=== PATIENT | female | born 2000 | race Caucasian/White ===

== ENCOUNTER 2023-04-12 09:55 | Emergency (ER) | payer SELFPAY ==
[2023-04-12 10:01] VITALS: BP 136/83; PULSE 96; RESP 20; TEMP 36.7; O2SAT 99
[2023-04-12 10:08] VITALS: BP 136/83; PULSE 96; RESP 20; TEMP 36.7; O2SAT 99
--- NOTE | 2023-04-12 10:20 | ED.GENADULT ---
HPI - General Adult General Chief complaint: Nausea/Vomiting/Diarrhea Stated complaint: nausea Time Seen by Provider: 04/12/23 10:20 Source: patient, RN notes reviewed and old records reviewed Mode of arrival: ambulatory Limitations: no limitations History of Present Illness HPI narrative: 22 year old female who presents to [facility] care with complaints of nausea for the past 4 days and decreased appetite with 5# weight loss. Patient reports that last Monday she had flu symptoms but didn't actually have documentation of flu. She states that her boyfriend had the flu and then she started with cough, headache, fever and no appetite with some stomach cramping. Patient reports that she has been drinking fluids well and has not had any recent abdominal pain, no vomiting or diarrhea reported. Patient reports no appetite. MD complaint: nausea Onset (ago): day(s) (4) Severity: mild Treatments prior to arrival: none Related Data Home Medications Medication Instructions Recorded Confirmed fluoxetine 20 mg capsule mg 04/12/23 norethindrone 1 mg-ethinyl tablet 04/12/23 estradiol 20 mcg (21)-iron 75 mg (7) tablet (02/25 (28)) Allergies Allergy/AdvReac Type Severity Reaction Status Date / Time No Known Allergies Allergy Verified 04/12/23 09:58 Review of Systems Review of Systems: CONSTITUTIONAL: Denies fever, chills, or sweats. ENT: Denies rhinorrhea, congestion, sore throat, or otalgia. CARDIOVASCULAR: Denies chest pain, palpitations, or edema. RESPIRATORY: Reports some lingering cough denies any dyspnea. GASTROINTESTINAL: Reports no abdominal pain,positive for nausea, no vomiting, diarrhea. GENITOURINARY: Denies dysuria or hematuria. SKIN: Denies rash or itching. MUSCULOSKELETAL: Denies back pain, joint pain, or myalgia. NEUROLOGIC: Denies headache, numbness, or weakness. All systems reviewed & are unremarkable except as noted in HPI and below PMFSH Past Medical History Medical History (Updated 04/13/23 @ 09:33 by Kandace Valentin NP) Anxiety and depression Ear infection Strep throat Social History Social History (Updated 04/13/23 @ 09:33 by Kandace Valentin NP) Smoking status: Never smoker Alcohol intake: never Substance use type: does not use Living arrangements: with family Gender identity (if verbalized by the patient): Female Comments At time of signature, agree with nursing past medical, surgical, social and family history. There is no relevant family history pertinent to the presenting complaint Exam Narrative: GENERAL: Well-appearing, well-nourished, and in no acute distress. HEAD: Normocephalic, atraumatic. EYES: PERRLA, conjunctivae clear, and EOMI. ENT: Nares clear. Mucous membranes moist. Oropharynx without edema, erythema, or lesions. Tonsils not enlarged and without exudate. NECK: Supple. No lymphadenopathy CHEST: Speaks in full sentences. No respiratory distress.dry cough noted SAO2 99% on room air HEART: Regular rate and rhythm. ABDOMEN: Soft, flat, nondistended. No guarding, rebound tenderness, or rigid. No pulsatilla masses. Bowel sounds present in all four quadrants. No organomegaly. Negative York?s sign. No periumbilical tenderness. No Supra public tenderness or distension. Good femoral pulses bilaterally. No hernia noted. No scars or surface trauma.no McBurney point tenderness. SKIN: Warm, dry, no rash. NEURO:? Alert and oriented x3. PSYCH: Normal mood and affect Course Course Emergency Course: Patient is aware of diagnosis, understands and agrees to treatment plan.? Anticipatory guidance given.? Patient agrees to follow-up as directed and is aware of reasons to seek care at the emergency department. Portions of this record may have been created with voice recognition software Level of Care: Express Care Visit Vital Signs Vital signs: Vital Signs Temperature 36.7 C 04/12/23 10:01 Pulse Rate 96 04/12/23 10:01 Respira
== END 2023-04-12 10:42 | disposition home or self-care (01) ==
PROVIDERS: Emergency Provider Registered Nurse; PCP Nurse Practitioner Family
DX: R11.0 Nausea (principal)
CPT/HCPCS: 99213; G0463

== ENCOUNTER 2024-12-26 17:58 | Emergency (ER) | payer OTHER, SELFPAY ==
[2024-12-26 18:04] VITALS: BP 142/89; PULSE 78; RESP 16; TEMP 37.2; O2SAT 100
--- NOTE | 2024-12-26 18:10 | ED_ITS ---
HPI - General Adult General Chief complaint: GI Bleed Stated complaint: Blood in bowl movement Time Seen by Provider: 12/26/24 18:14 Source: patient, RN notes reviewed and old records reviewed Mode of arrival: ambulatory Limitations: no limitations History of Present Illness HPI narrative: 24 year old female presents to [facility] care with complaints of having a hard stool about an hour ago and noted some bright red blood from rectum after stool and also a small blood clot. Patient reports that she has no discomfort to rectal area at this time. Patient reports that she has had history of hemorrhoids in the past. Patient also reports that she is 20 days lateon her menses complaint: blood after having hard stool Onset (ago): hour(s) (1 hour ago) Location: buttocks (rectal blood noted after having hard stool) Treatments prior to arrival: none Related Data Home Medications ?Medication ?Instructions ?Recorded ?Confirmed ?Last Taken ?Type fluoxetine 20 mg capsule mg 04/12/23 Unknown History norethindrone 1 mg-ethinyl tablet 04/12/23 Unknown Hi story estradiol 20 mcg (21)-iron 75 mg (7) tablet (02/25 (28)) Allergies Allergy/AdvReac Type Severity Reaction Status Date / Time No Known Allergies Allergy Verified 12/26/24 18:02 Review of Systems Review of Systems: CONSTITUTIONAL: Denies fever, chills, or sweats. EYES: Denies visual changes, redness, or discharge. ENT: Denies rhinorrhea, congestion, sore throat, or otalgia. CARDIOVASCULAR: Denies chest pain, palpitations, or edema. RESPIRATORY: Denies cough or dyspnea. GASTROINTESTINAL: Denies abdominal pain, nausea, vomiting, or diarrhea.reports noted bright red blood one hour ago from rectum after having a hard stool and also small blood clot. GENITOURINARY: Denies dysuria or hematuria. SKIN: Denies rash or itching. MUSCULOSKELETAL: Denies back pain, joint pain, or myalgia. NEUROLOGIC: Denies headache, numbness, or weakness. PSYCHIATRIC: positive for history of anxiety or depression. All systems reviewed & are unremarkable except as noted in HPI and below PMFSH Past Medical History Medical History Hemorrhoids Strep throat Ear infection Anxiety and depression Social History Social History Smoking status: Never smoker Alcohol intake: never Substance use type: does not use Living arrangements: with family Gender identity (if verbalized by the patient): Female Comments At time of signature, agree with nursing past medical, surgical, social and family history. There is no relevant family history pertinent to the presenting complaint Exam Narrative: GENERAL: Well-appearing, well-nourished, and in no acute distress. HEAD: Normocephalic, atraumatic. EYES: PERRLA and EOMI. ENT: Nares clear, no rhinorrhea or epistaxis. Mucous membranes moist.TM's normal throat pink with no swelling or exudates NECK: Supple.no lymphadenopathy CHEST: Clear to auscultation. No respiratory distress.SAO2 100% on room air HEART: Regular rate and rhythm. No murmur heard. Normal peripheral pulses. ABDOMEN: Soft, nontender, nondistended, normal active bowel sounds.On examination no external hemorrhoids noted or any bulging at rectum, no bloody drainage noted, denies any pain to rectum EXTREMITIES: Normal range of motion. No edema. SKIN: Warm, dry, no rash. NEURO: No focal deficits. Alert and oriented x3. Course Course Emergency Course: Patient is aware of diagnosis, understands and agrees to treatment plan.? Anticipatory guidance given.? Patient agrees to follow-up as directed and is aware of reasons to seek care at the emergency department. Portions of this record may have been created with voice recognition software Level of Care: Express Care Visit Vital Signs Vital signs: Vital Signs Temperature 37.2 C 12/26/24 18:04 Pulse Rate 78 12/26/24 18:04 Respiratory Rate 16 12/26/24 18:04 Blood Pressure 142/89 H 12/26/24 18:04 Pulse Oximetry 100 12/26/24 18:04 Oxygen Delivery Room Air 12/26/24 18:04 Temperature 37.2 C 12/26/24 18:04 Pulse Rate 78 12/26/24 18:04 Respiratory Rate 16 12/26/24 18:04 Blood Pressure 142/89 H 12/26/24 18:04 Pulse Oximetry 100 12/26/24 18:04 Oxygen Delivery Room Air 12/26/24 18:04 Reviewed Medical Decision Making MDM Narrative Medical decision making narrative: Exam findings and imaging show no acute concerns or changes; patient is non- toxic appearing and is in no distress.? Patient is appropriate for outpatient treatment and follow-up Differential Diagnosis Differential Diagnosis: blood from rectum, constipation, hemorrhoids Medical Records Medical records reviewed: Yes I reviewed the external patient's medical records. Vital Signs Vital Signs: Vital Signs Temperature 37.2 C 12/26/24 18:04 Pulse Rate 78 12/26/24 18:04 Respiratory Rate 16 12/26/24 18:04 Blood Pressure 142/89 H 12/26/24 18:04 Pulse Oximetry 100 12/26/24 18:04 Oxygen Delivery Room Air 12/26/24 18:04 Temperature 37.2 C 12/26/24 18:04 Pulse Rate 78 12/26/24 18:04 Respiratory Rate 16 12/26/24 18:04 Blood Pressure 142/89 H 12/26/24 18:04 Pulse Oximetry 100 12/26/24 18:04 Oxygen Delivery Room Air 12/26/24 18:04 reviewed Lab Data Lab results reviewed: Yes I reviewed the patient's lab results. Lab results narrative: urine negative Labs: Lab Results 12/26/24 Range/Units 18:19 POC Urine HCG, Qual Negative (Negative) Critical Care Time Critical Care Time Critical Care Time: No Discharge Plan Discharge Clinical Impression: Blood in stool Patient Disposition: Home Condition: Stable Instructions: Antibiotic Form, Melena (ED) Additional Instructions: Patient to monitor stools for any further evidence of blood daily stool softeners to maintain softer stools Tylenol only for pain Follow up with your PCP for any further complaints or if increased blood from rectum go directly to ED Patient to avoid any alcohol, caffeine or spicy foods. If your symptoms persist, change or worsen significantly before you can contact your personal physician then please, without delay, go to the emergency department for further evaluation. Follow-up with PCP in 7-10 days or sooner if needed Follow up with PCP soon in regards to your blood pressure which is elevated above threshold for referral. Blood pressure above 120/80 may indicate pre- hypertension. 142/89 Patient Language: Latvian Prescriptions: New hydrocortisone acetate [Anusol-HC] 25 mg suppository 25 mg RECTAL HS Qty: 12 0RF Rx Instructions: use as needed for any rectal irritation No Action norethindrone-e.estradiol-iron [Junel FE 02/25 (28)] 1 mg-20 mcg (21)/75 mg (7) tablet fluoxetine 20 mg capsule Follow-up/Referrals: PHYSICIAN NOT ON STAFF,NONSTAFF [Primary Care Provider] Time of Disposition: 18:36 Quality Charly Coma Scale Eyes: Open Verbal: Oriented and Alert Motor: Follows Commands Charly Coma Total Score: 15
[2024-12-26 18:22] LABS: BEDSIDEPREGUCG Negative (Negative)
--- OUTSIDE RECORDS SUMMARY | 2024-12-26 18:25 | XMS_ITS | Clinical Summary ---
Author Organization [facility] Address [address] [facility] [address] [place] [address] Phone Care Team Providers Care Cementer Machine Joiner Name Role Phone Laith Mcknight MD Primary Care Provider Allergies No known active allergies Medications FLUoxetine (PROzac) 20 MG Capsule TAKE 1 CAPSULE BY MOUTH EVERY DAY 12/22/2019 Active fluticasone (FLONASE) 50 MCG/ACT Suspension SPRAY 1 SPRAY INTO EACH NOSTRIL EVERY DAY 12/05/2019 Active SUMAtriptan (IMITREX) 25 MG Tablet 1 TABLET BY MOUTH EVERY 8 HOURS NEEDED FOR HEADACHE. MAX 2 PER DAY 01/16/2020 Active Junel 02/25 1-20 MG-MCG Tablet Take 1 Tab by mouth daily. 12/27/2019 Active Active Problems No known active problems Family History Medical History Relation Name Comments Multiple Sclerosis Father Hypertension Maternal Grandfather Hypertension Maternal Grandmother Relation Name Status Comments Father Maternal Grandfather Maternal Grandmother Social History Tobacco Use Types Packs/Day Years Used Date Smoking Tobacco: Never Smokeless Tobacco: Never Tobacco Cessation:Counseling Given: No Alcohol Use Standard Drinks/Week Comments Never 0 (1 standard drink = 0.6 oz pur e alcohol) AUDIT-C Answer Date Recorded Q1: How often do you have a drink containing alc ohol? Never 01/23/2020 Average Number of Drinks Not on file 020 Frequency of Binge Drinking Not on file 01/06 Sexually Active Control Partners Comments Not Currently Comments No Sex and Gender Information Value Date Recorded Sex Assigned at Not on file Legal Sex Female 1:16 PM HYDROMETEOROLOGY TEACHER Gender Identity Not on file Sexual Orientation Not on file Last Filed Vital Signs Vital Sign Reading Time Taken Comments Blood Pressure 106/70 01/23/2020 1:43 PM HYDROMETEOROLOGY TEACHER Pulse 80 01/23/2020 1:43 PM HYDROMETEOROLOGY TEACHER Temperature 36.7 C (98 F) 01/23/2020 1:43 PM HYDROMETEOROLOGY TEACHER Respiratory Rate 20 01/23/2020 1:43 PM HYDROMETEOROLOGY TEACHER Oxygen Saturation 98% 01/23/2020 1:43 PM HYDROMETEOROLOGY TEACHER Inhaled Oxygen Concentration - - Weight 58.1 kg (128 lb) 01/23/2020 1:43 PM HYDROMETEOROLOGY TEACHER Height 165.1 cm (5' 5) 01/23/2020 1:43 PM HYDROMETEOROLOGY TEACHER Body Mass Index 21.3 01/23/2020 1:43 PM HYDROMETEOROLOGY TEACHER Plan of Treatment Health Maintenance Due Date Last Done Comments Hepatitis C Virus (HCV) Screening 2001 Meningococcal B Immunization (2 of 2 - Bexsero SCDM 2-dose series) 09/12/2019 03/14/2019 Influenza Immunization (#1) 2024 SARS-COV-2 Immunization ( season) 2024 Respiratory Syncytial Virus (RSV) Immunization (Adult) (1 - 1-dose 75+ series) 2076 Pneumococcal Immunization Combined Aged Out 06/13/2002, 04/09/2002, 01/31/2002 No longer eligible based on patient's age to complete this topic Hepatitis B Immunization Completed 004, 12/03/2002, 04/09/2002, Additional history exists Measles Mumps Rubella (MMR) Immunization Discontinued 05/21/2007, 04/30/2003 Polio (IPV) Immunization Discontinued 008, 06/13/2002, 04/09/2002, Additional history exists Varicella Immunization Discontinued 05/21/2007, 2002 DTaP/Tdap/Td Immunization Discontinued 2012, 05/21/2007, 04/28/2003, Additional history exists TdaP Immunization Completed 01/14/2013 Hepatitis A Immunization Discontinued 08/01/2013, 10/2012 Human Papillomavirus (HPV) Immunization Completed 08/18/2016, 08/01/2013 Meningococcal Immunization (ACWY) Completed 03/14/2019, 01/14/2013 Rotavirus Immunization Aged Out No lo nger eligible based on patient's age to complete this topic Insurance MEDICAID [place] Care Teams Cementer Machine Joiner Relationship Specialty Start Date End Date Laith Mcknight MD [address] [place] [address] [place] [id number] PCP - General Pediatrics 12/27/19
--- OUTSIDE RECORDS SUMMARY | 2024-12-26 18:25 | XMS_ITS | Clinical Summary ---
Author Organization [facility] [employer] Address [address] [place] [address] Care Team Providers Care Automatic Casting Machine Operator Name Role Phone Laith Mcknight MD Primary Care Provider [phone] Source Comments [facility] [employer],non-owned Affiliates and Associated Physician Practices is amultiple site organization consisting of ambulatory clinics and hospital sitesin [place], [place], [place] and [place]. This disclosure is being madepursuant to the Care Everywhere program and may not contain all information available regarding this patient. Last updated 17.[facility] [employer] Allergies No known active allergies Medications * Be aware that medications may not be up to date on this document. Alwaysverify current medications with the patient. norgestimate-eth inyl estradiol (ORTHO-CYCLEN; MONONESSA; PREVIFEM; SPRINTEC) 0.25-35 MG-MCG tablet Take 1 tablet by mouth once daily Active diphenhydrAMINE 12.5 MG/5ML 150 mg, aluminum-magnesi um-simethicone 200-200-20 MG/5ML 60 mL Swish and spit 5 mL as needed 60 Each 03/10/2017 Active Social History Tobacco Use Types Packs/Day Years Used Date Smoking Tobacco: Never Smokeless Tobacco: Never Alcohol Use Standard Drinks/Week Comments No 0 (1 standard drink = 0.6 oz pur e alcohol) Comments Unknown Sex and Gender Information Value Date Recorded Sex Assigned at Not on file Legal Sex Female 10:48 AM VESSEL LINER Gender Identity Not on file Sexual Orientation Not on file Last Filed Vital Signs Vital Sign Reading Time Taken Comments Blood Pressure 111/67 03/10/2017 3:38 PM VESSEL LINER Pulse 110 03/10/2017 3:38 PM VESSEL LINER Temperature 38.3 C (100.9 F) 03/10/2017 3:38 PM VESSEL LINER Respiratory Rate 24 03/10/2017 3:38 PM VESSEL LINER Oxygen Saturation 98% 03/10/2017 3:38 PM VESSEL LINER Inhaled Oxygen Concentration - - Weight 54.7 kg (120 lb 9.5 oz) 03/10/2017 3:38 P M VESSEL LINER Height - - Body Mass Index - - Plan of Treatment Health Maintenance Due Date Last Done Comments HIV SCREENING 2016 HPV VACCINE (1 - 3-dose series) 2016 CHLAMYDIA/GONORRHEA SCREENING 2017 MENINGOCOCCAL (Group B) VACC INE SHARED DECISION-MAKING (1 of 2 - Standard) 2017 HEPATITIS C SCREENING 11/24/2019 DTAP/TDAP/TD VACCINES (1 - Tdap) 2020 HEPATITIS B VACCINE (1 of 3 - 19+ 3-dose series) 2020 DEPRESSION SCREENING 02/07/2024 COVID-19 VACCINE (1 - 2024-2 6 season) 2024 INFLUENZA VACCINE (#1) 2024 ZOSTER VACCINE (1 of 2) 11/29/2051 HIB VACCINE Aged Out No longer eligi ble based on patient's age to complete this topic MENINGOCOCCAL GROUPS A/C/Y/W VACCINE Aged Out No longer eligible b ased on patient's age to complete this topic PNEUMOCOCCAL VACCINE Aged Out No long er eligible based on patient's age to complete this topic Insurance [facility] Care Teams Automatic Casting Machine Operator Relationship Specialty Start Date End Date Laith Mcknight MD [address] [place], [place] [id number] PCP - General Pediatrics 03/09/17
--- OUTSIDE RECORDS SUMMARY | 2024-12-26 18:25 | XMS_ITS | Clinical Summary ---
Author Organization [facility] Address [address] [place] [id number] Care Team Providers Care Export Freight Clerk Name Role Phone Unavailable Primary Care Provider Unavailabl e Social History Tobacco Use Types Packs/Day Years Used Date Smoking Tobacco: Never Assessed Comments Unknown Sex and Gender Information Value Date Recorded Sex Assigned at Not on file Legal Sex Female 7:05 PM CDT Gender Identity Not on file Sexual Orientation Not on file Plan of Treatment Health Maintenance Due Date Last Done Comments Cervical Cancer Screening Pa p Smear (Age 21 to 29) Every 3 Years 2001 Cervical Cancer Screening 2001 Annual Physical 2004 HPV Vaccines (1 - 3-dose series) 2016 Meningococcal B Vaccine (1 o f 2 - Standard) 2017 Hepatitis C 11/29/2019 DTaP, Tdap and Td Vaccines ( 1 - Tdap) 2020 Hepatitis B Vaccines (1 of 3 - 19+ 3-dose series) 2020 COVID-19 Vaccine (1 - 2024-2 6 season) 2024 Influenza Adult (#1) 2024 Hepatitis A Vaccines Aged Out No long er eligible based on patient's age to complete this topic Meningococcal Vaccine Aged Out No margaret victor m eligible based on patient's age to complete this topic Pneumococcal Vaccine: Pediat rics (0 to 5 Years) and At-Risk Patients (6 to 49 Years) Aged Out No longer eligible b ased on patient's age to complete this topic RSV Immunizations Under 20 Months Aged Out No longer eligible based on patient's age to complete this topic
== END 2024-12-26 18:48 | disposition home or self-care (01) ==
PROVIDERS: Emergency Provider Registered Nurse
DX: K92.1 Melena (principal); F41.9 Anxiety disorder, unspecified; F32.A Depression, unspecified
CPT/HCPCS: 81025; 99213; G0463